=== PATIENT | female | born 1970 | race Caucasian/White ===

== ENCOUNTER 2020-06-13 16:22 | Emergency (ER) | payer BC ==
[2020-06-13 18:04] LABS: #Basophils 0.1 10x3/uL (0.0-0.2); #Eosinphils 0.2 10x3/uL (0.0-0.5); #Monocytes 0.6 10x3/uL (0.0-1.1); #Neutrophils 5.6 10x3/uL (1.5-8.4); %Basophils 0.8 % (0.0-2.0); %Eosinophils 1.7 % (0.0-6.0); %Lymphocytes 24.9 % (18.0-47.0); %Monocytes 7.3 % (0.0-10.0); Hemoglobin 12.4 g/dL (12.0-15.5); Mean Corpuscular HGB CONC 32.5 g/dL (32.0-36.0); Mean Corpuscular Volume 89.2 fl (81.6-98.3); Mean Platelet Volume 9.2 fl (7.4-10.4); Platelet Count 379 10x3/uL (150-450); RBC Distribution Width 13.2 % (11.5-14.5); Red Blood Cell (RBC) Count 4.27 10x6/uL (3.90-5.03); White Blood Cell (WBC) Count 8.7 10x3/uL (3.5-10.5)
[2020-06-13] MEDS ORDERED: Lorazepam 1 MG TAB ONE (19:04)
== END 2020-06-13 20:00 | disposition home or self-care (01) ==
LOC: CSHERS 16:22
DX: N93.9 Abnormal uterine and vaginal bleeding, unspecified (principal)
CPT/HCPCS: 76856; 85025